=== PATIENT | male | born 1980 | race Caucasian/White ===

== ENCOUNTER 2019-06-03 13:01 | Emergency (ER) | payer OTHER ==
[~2019-06-03] VITALS: Ht 175.3 cm; Wt 70.3 kg
[2019-06-03] MEDS ORDERED: CYCL5TAB PO (13:27)
[2019-06-03] MEDS ORDERED: TRAM50TA PO (13:28)
--- NOTE | 2019-06-03 13:28 | PHYS DOC ---
Adult General Chief Complaint Chief Complaint: BACK PAIN OR INJURY HPI HPI 39-year-old male presents to emergency department with complaints of back pain. She states he's had similar episode in the past primarily lower back, no significant radiation down his legs however didn't describe primary muscle sp asms. He states his back feels tight. He did travel yesterday for work however no other injury. Denies any difficulty with bowel or bladder function. Patient was able to ambulate. Denies any fever, nausea, vomiting, chest pain, shortness of breath Review of Systems Review of Systems Constitutional: Denies fever or chills [] Respiratory: Denies cough or shortness of breath [] Cardiovascular: No additional information not addressed in HPI [] GI: Denies abdominal pain, nausea, vomiting, bloody stools or diarrhea [] : Denies dysuria or hematuria, no difficulty in bowel or bladder function Musculoskeletal: No back pain, midline, paraspinous muscles Neurologic: Denies headache, focal weakness or sensory changes [] All other systems were reviewed and found to be within normal limits, except as documented in this note. Physical Exam Physical Exam Constitutional: Well developed, well nourished, no acute distress, non-toxic appearance. [] HENT: Normocephalic, atraumatic, bilateral external ears normal, oropharynx moist, no oral exudates, nose normal. [] Cardiovascular:Heart rate regular rhythm, no murmur [] Lungs & Thorax: Bilateral breath sounds clear to auscultation [] Abdomen: Bowel sounds normal, soft, no tenderness, no masses, no pulsatile masses. [] Skin: Warm, dry, no erythema, no rash. [] Back: Tender to palpation midline and paraspinous muscles, no CVA tenderness Extremities: No tenderness, no cyanosis, no clubbing, ROM intact, no edema. Negative straight leg raise Neurologic: Alert and oriented X 3, no focal deficits noted. [] Psychologic: Affect normal, judgement normal, mood normal. [] Current Patient Data Vital Signs emperature (Fahrenheit): * 98.2 degrees F (97.6-99.5) Patient Temperature * 98.2 degrees F (97.5-99.5) Temperature Source * Oral Blood Pressure Systolic * 132 mm Hg (100-140) Blood Pressure Diastolic * 65 mm Hg (60-100) Blood Pressure Mean * 87 mm Hg Pulse Rate * 64 beats per minute (60-90) Respiratory Rate * 18 breaths per minute (12-24) Oxygen Delivery Method EKG EKG [] Radiology/Procedures Radiology/Procedures [] Course & Med Decision Making Course & Med Decision Making Pertinent Labs and Imaging studies reviewed. (See chart for details) 39-year-old male presents to the emergency Department complaints of back pain. Patient with history of acute on chronic back pain. No recent injury. Neuro exam unremarkable. Total IM, Flexeril prescription, tramadol provided upon discharge. Patient without bladder or bowel dysfunction. Dragon Disclaimer Dragon Disclaimer This electronic medical record was generated, in whole or in part, using a voice recognition dictation system. Departure Departure: Impression: Primary Impression: Back pain Disposition: 01 HOME, SELF-CARE Condition: IMPROVED Referrals: PCPANDREWS (PCP) Patient Instructions: Back Pain, Adult, [id number] Scripts Tramadol Hcl (TRAMADOL HCL) 50 Mg Tablet 50 MG PO PRN Q6HRS PRN for PAIN, #10 TAB Take 1/2 tab po every 6 hours as needed for pain Prov: ROSSANA ROLAND MD 06/03/19 Cyclobenzaprine Hcl (CYCLOBENZAPRINE HCL) 5 Mg Tablet 5 MG PO TID PRN for PAIN, #20 TAB Prov: ROSSANA ROLAND MD 06/03/19 Problem Qualifiers Primary Impression: Back pain Back pain location: low back pain Chronicity: acute Back pain laterality: bilateral Sciatica presence: without sciatica Qualified Codes: M54.5 - Low back pain ROSSANA ROLAND MD Jun 03, 2019 13:28
[2019-06-03] MEDS ORDERED: KETOROLAC 60 MG/2 ML VIAL. IM ONE ×2 (13:33→13:45)
[2019-06-03 13:39] VITALS: BP 132/65
== END 2019-06-03 13:52 | disposition home or self-care (01) ==
LOC: ER 13:01
DX: M54.5 Low back pain (principal); G89.29 Other chronic pain
CPT/HCPCS: 96372; 99283; J1885